=== PATIENT | female | born 1990 | race Caucasian/White ===

== ENCOUNTER 2016-09-07 11:34 | Emergency (ER) | payer SELFPAY ==
[~2016-09-07] VITALS: Ht 162.6 cm; Wt 115.5 kg
[2016-09-07 12:15] LABS: ADD MIUA? NO; BILIRUBIN NEGATIVE; BLOOD NEGATIVE; COLOR STRAW ((YELLOW)); GLUCOSE (STRIP) NEGATIVE; KETONES 5; LEUKOCYTES NEGATIVE; NITRITE NEGATIVE; PROTEIN (STRIP) NEGATIVE; SPECIFIC GRAVITY 1.005 (1.000-1.030); UCUL ADDED? NO; UROBILINOGEN 0.2 MG/DL (0.2-1.0)
[2016-09-07] MEDS ORDERED: MIRENA52 MG IY (12:49)
[2016-09-07 12:56] LABS: HEMATOCRIT 38.7 % (36.0-46.0); MCH 28.6 PG (29.0-34.0); MCHC 33.6 G/DL (30.0-36.0); MCV 85.1 FL (83-99); MEAN PLAT.VOLUME 9.9 uM^3 (9.5-12.4); PLATELET COUNT 237 K/uL (156-360); RBC DIS.WIDTH-CV 11.9 % (11.8-14.6); RBC DIS.WIDTH-SD 36.7 % (39-53); RED BLOOD COUNT 4.55 M/uL (3.80-5.20); WHITE BLOOD COUNT 10.7 K/uL (4.1-10.2)
[2016-09-07 13:07] LABS: CHLORIDE 105 mEq/L (99-109); POTASSIUM 3.7 mEq/L (3.7-5.4); SODIUM 137 mEq/L (136-147)
[2016-09-07 13:10] LABS: GLUCOSE 108 mg/dL (70-99)
[2016-09-07 13:11] LABS: ANION GAP 9 MEQ/L (2-14)
[2016-09-07 13:13] LABS: ALKALINE PHOSPHATASE 65 IU/L (3-129); GFR ESTIMATE (CALCULATED) > 59 mL/min/
[2016-09-07 13:14] LABS: UREA NITROGEN (BUN) 13 mg/dL (9-23)
[2016-09-07 13:25] LABS: QUANTITATIVE HCG < 4.0 MIU/ML
[2016-09-07 14:09] LABS: C DIFF TOXIN NEGATIVE (NEGATIVE); PROBE CHECK PASS; SPECIMEN PROCESSING CONTROL PASS
[2016-09-07] MEDS ORDERED: CIPRO500 MG PO (14:32)
[2016-09-07] MEDS ORDERED: ZOFRAN4 MG PO (14:32)
[2016-09-07 14:42] VITALS: BP 148/87
== END 2016-09-07 14:43 | disposition home or self-care (01) ==
LOC: EME 11:34 → EXP 11:34
PROVIDERS: Physician Assistant
DX: R11.2 Nausea with vomiting, unspecified (principal); R19.7 Diarrhea, unspecified
CPT/HCPCS: 80053; 81003; 84702; 85027; 87177; 87425; 87493; 87506; 99281; 99284; J1885